=== PATIENT | female | born 1950 | race Caucasian/White ===

== ENCOUNTER → 2016-06-23 | Outpatient (CLI) | payer MEDICARE, OTHER ==
--- NOTE | 2016-06-24 09:13 | MRI ---
EXAM DESCRIPTION: Lumbar Spine w/o Contrast CLINICAL HISTORY: 66 years, Female, LOW BACK PAIN COMPARISON: None TECHNIQUE: Multiplanar multi sequence images of the lumbar spine were obtained without gadolinium contrast. FINDINGS: Vertebral body height and alignment are well maintained. There has been probable partial discectomy at L4-5. No bone marrow signal abnormalities are noted. The conus lies posterior to the L2 body, and the cauda equina is unremarkable. The paraspinal and visualized retroperitoneal soft tissues are unremarkable. At L1-2, there is no significant disc bulging or facet joint degeneration. At L2-3, there is mild bilateral facet joint degeneration and ligament flavum thickening. Minimal concentric disc bulging without neuroforaminal or significant central canal stenosis. At L3-4, there is bilateral facet joint degeneration and ligament flavum thickening also with only minimal concentric disc bulging. No neuroforaminal or significant central canal stenosis. At L4-5, scarring in the posterior soft tissues and possible small laminectomy defect are related to prior surgery. There is disc desiccation with concentric disc bulging and bilateral facet joint degeneration. Findings result in advanced left-sided neuroforaminal stenosis. Disc material approaches and possibly abuts the exiting left L4 nerve root. Mild right-sided neuroforaminal stenosis without definite right L4 nerve root abutment. Disc material indents the anterior thecal sac and approaches the L5 nerve roots in the lateral recesses bilaterally. Posterior annular tear may also be related prior surgery. At L5-S1, there is bilateral facet joint degeneration, worse on the right side, without significant disc bulging or stenosis. An osteophyte arising from the anterior aspect of the right L5-S1 facet approaches but does not definitely abut or displace the exiting right L5 nerve root. IMPRESSION: Postoperative changes at L4-5 with recurrent disc bulging and bilateral facet joint degeneration resulting in bilateral neuroforaminal stenosis, worse on the left side, including possible nerve root abutment as detailed above. Less advanced degenerative changes elsewhere in the lumbar spine without additional stenosis or definite root abutment. Electronically signed by: Emir Paulino MD 06/24/2016 9:12 AM CAREER [employer]ATION [employer]
== END | disposition home or self-care (01) ==
LOC: MRI 12:34
PROVIDERS: ATTEND Family Medicine
DX: M48.07 Spinal stenosis, lumbosacral region (principal); M54.5 Low back pain

== ENCOUNTER → 2016-07-29 | Outpatient (CLI) | payer MEDICARE, OTHER | END | disposition home or self-care (01) | LOC: GMAL 10:28 | PROVIDERS: ATTEND Family Medicine | DX: D51.3 Other dietary vitamin B12 deficiency anemia (principal); E55.9 Vitamin D deficiency, unspecified ==

== ENCOUNTER 2016-10-27 18:59 | Emergency (ER) | payer MEDICARE, OTHER ==
[2016-10-27] MEDS ORDERED: ASPIRIN TABLET 325 MG TAB PO ONE (19:23)
[2016-10-27] MEDS ORDERED: NITROGLYCERIN 0.4 MG 25 EA TAB SL ONE ×2 (19:23)
[2016-10-27] MEDS ORDERED: SODIUM CHLORIDE 0.9% (FLUSH) 10 ML SYG IV PRN (19:23)
[2016-10-27] MEDS ORDERED: ASPIRIN TABLET 325 MG TAB ONE (19:23)
[2016-10-27] MEDS ORDERED: ONDANSETRON INJ 4 MG/2 ML VIAL IV ONE (19:23)
[2016-10-27] MEDS ORDERED: MORPHINE SULFATE INJ 10 MG/ML VIAL IV ONE (19:29)
[2016-10-27] MEDS ORDERED: METOPROLOL TARTRATE 25 MG TAB PO ONE (19:29)
--- NOTE | 2016-10-27 20:01 | RAD ---
PROCEDURE: XR CHEST 1 VIEW HISTORY: Chest pain COMPARISON: 09/27/2014 TECHNIQUE: Single projection of the chest was done. FINDINGS: The lung estes are well inflated . There are no discrete airspace infiltrates, pneumothoraces or pleural effusions. The pulmonary vascularity is normal. The cardiomediastinal silhouette is stable. IMPRESSION: There is no acute pleural-parenchymal process seen in the imaged lung estes. Electronically signed by: Pj Murcia MD 10/27/2016 7:59 PM CDT Workstation: [id number]
[2016-10-27] MEDS ORDERED: HEPARIN SODIUM (PORCINE) 5,000 U/ML VIAL IV ONE (20:02)
[2016-10-27] MEDS ORDERED: ACETYLCYSTEIN 20 % 6,000 MG/30 ML VIAL PO ONE (20:18)
[2016-10-27] MEDS ORDERED: MAGNESIUM SULFATE PREMIX 2GM 2 GM in PREMIX BAG 1 BAG IVPB ONE (20:49)
[2016-10-27] MEDS ORDERED: MAGNESIUM SULFATE PREMIX 2GM 50 ML IVPB ONE (21:16)
--- NOTE | 2016-10-27 21:55 | CT ---
EXAM: CTA Chest CLINICAL INDICATION: 66-year-old female with A. fib, d-dimer and chest wall pain. COMPARISON: None. EXAMINATION: CT angiography of the pulmonary arteries was performed following intravenous administration of contrast. Coronal and bilateral oblique maximum intensity projections (MIPS) were created. This exam was performed according to our departmental dose optimization program which includes use of automated exposure control, adjustment of the mA and/or kV according to patient size and/or use of iterative reconstruction technique. FINDINGS: Chest: Evaluation through the lungs reveals no focal opacity, pleural effusion or pneumothorax. There is minimal dependent basilar atelectasis and scarring. The tracheobronchial airways are patent. No significant mediastinal or axillary lymphadenopathy by CT measurement criteria. Limited evaluation of the upper abdomen shows no acute intra-abdominal abnormalities. The osseous structures are within normal limits. CT angiography: Nondiagnostic CT angiography of the pulmonary arteries secondary to poor contrast opacification of the pulmonary arteries without large central intraluminal filling defect noted to suggest pulmonary arterial embolus. Pulmonary embolism beyond the segmental level cannot be evaluated secondary to suboptimal contrast opacification. IMPRESSION: 1. Nondiagnostic CT angiography of the pulmonary arteries secondary to poor contrast opacification of the pulmonary arteries without large central intraluminal filling defect noted to suggest pulmonary arterial embolus. Pulmonary embolism beyond the segmental level cannot be evaluated secondary to suboptimal contrast opacification. Repeat evaluation may be considered. 2. The lungs are clear without focal opacity, pleural effusion or pneumothorax. 3. No specific findings are noted to suggest etiology of the patient's chest pain and shortness of breath. Electronically signed by: Khadijah Helton MD 10/27/2016 9:54 PM CDT Workstation: [id number]
[2016-10-27] MEDS ORDERED: SODIUM CHLORIDE 0.9% 1000ML 500 ML IVS ONE (21:59)
[2016-10-27] MEDS ORDERED: CLOPIDOGREL 75 MG TAB PO ONE (22:30)
[2016-10-27] MEDS ORDERED: NITROGLYCERIN 0.4 MG 25 EA TAB SL PRN (22:47)
--- NOTE | 2016-10-27 22:58 | ED.PDOC ---
History of Present Illness - General Chief Complaint: Chest Pain/SD Stated Complaint: CP SOB Time Seen by Provider: 10/27/16 19:01 Source: patient, family Exam Limitations: no limitations - History of Present Illness Initial Comments: the patient is 66-year-old female presenting to the emergency room secondary to acute onset of chest pain and palpitations. The patient was feeling fine when she was walking around a store and then all of a sudden she developed severe chest pain and palpitations. She arrives here in atrial fibrillation with rapid ventricular rate and she is diaphoretic. Blood pressure is within normal limits and she is saturating at 100% on room air. Heart rate is between 120 and 130 bpm. the chest pain and atrial fibrillation both ceased within 5 minutes of receiving sublingual nitroglycerin. Timing/Duration: 1/2 hour Severity: severe Improving Factors: nothing, eating Associated Symptoms: chest pain, shortness of breath Allergies/Adverse Reactions: Allergies Amoxicillin [From Amoxil] Allergy (Verified 05/05/15 12:52) Ampicillin Allergy (Verified 05/05/15 12:52) Cefdinir [From Omnicef] Allergy (Verified 05/05/15 12:52) Ciprofloxacin [From Cipro] Allergy (Verified 05/05/15 12:52) Ezetimibe [From Vytorin] Allergy (Verified 05/05/15 12:52) Levofloxacin [From Levaquin] Allergy (Verified 05/05/15 12:52) Simvastatin [From Vytorin] Allergy (Verified 05/05/15 12:52) Sodium Benzoate [From Omnicef] Allergy (Verified 05/05/15 12:52) Statins Allergy (Verified 05/05/15 12:52) Sulfamethoxazole w/Trimethoprim [From Bactrim] Allergy (Verified 05/05/15 12:52) Home Medications: Ambulatory Orders Aspirin 325 mg PO PRN 04/01/13 Atenolol 50 mg PO DAILY 04/01/13 Colesevelam [Welchol] 1,875 mg PO BID 04/01/13 Cyanocobalamin [B-12] 1,000 mcg PO DAILY 04/01/13 Nitroglycerin 0.4 mg Tab [Nitrostat] 0.4 mg SL PRN 04/01/13 [place]-3 Fatty Acids [Lovaza] 1,000 mg PO QID 04/01/13 Pantoprazole Sodium 40 mg PO DAILY 04/01/13 Colchicine [Colcrys] 0.6 mg PO PRN PRN 05/08/14 Cyclobenzaprine HCl [Flexeril] 10 mg PO PRN 05/08/14 Febuxostat [Uloric] 40 mg PO JUNIE-OTH-DAY 05/08/14 Furosemide 20 mg PO PRN PRN 05/08/14 Olmesartan Medoxomil [Benicar] 40 mg PO DAILY 05/08/14 Amlodipine Besylate [Norvasc] 2.5 mg PO DAILY 05/05/15 Clopidogrel Bisulfate [Plavix] 75 mg PO QD 05/05/15 Pioglitazone HCl [Actos] 22.5 mg PO DAILY 05/05/15 Pravastatin Sodium [Pravachol] 20 mg PO BEDTIME 05/05/15 Review of Systems - Review of Systems Constitutional: States: malaise, weakness - generalized EENTM: States: no symptoms reported Respiratory: States: short of breath Cardiology: States: chest pain, palpitations Gastrointestinal/Abdominal: States: no symptoms reported Genitourinary: States: no symptoms reported Musculoskeletal: States: no symptoms reported Skin: States: no symptoms reported Neurological: States: anxiety Endocrine: States: no symptoms reported All other Systems: No Change from Baseline Past Medical History (General) - Patient Medical History Hx Seizures: No Hx Stroke: No Hx Dementia: No Hx Asthma: No Hx of COPD: No Hx Cardiac Disorders: Yes Hx Congestive Heart Failure: No Hx Pacemaker: No Hx Hypertension: Yes Hx Thyroid Disease: No Hx Diabetes: Yes Hx Gastroesophageal Reflux: Yes Hx Renal Disease: No Hx Cancer: No Hx of HIV: No Hx Hepatitis C: No Hx MRSA: No Surgical History: appendectomy, cholecystectomy, other - Vaccination History Hx Tetanus, Diphtheria Vaccination: - unknown Hx Influenza Vaccination: Yes Hx Pneumococcal Vaccination: Yes Immunizations Up to Date: Yes - Social History Hx Tobacco Use: No Hx Chewing Tobacco Use: No Hx Alcohol Use: No Hx Substance Use: No Hx Substance Use Treatment: No Hx Depression: No Feels Threatened In Home Enviroment: No Feels Threatened In a Relationship: No Hx Physical Abuse: No Hx Emotional Abuse: No Hx Suspected Abuse: No - Female History Patient : No Family Medical History - Family History Mother Living Status: Physical Exam - Physical Exam General Appearance: Alert, Obvious distress, Ill Appearing Eye Exam: bilateral normal Ears, Nose, Throat: hearing grossly normal, normal ENT inspection, normal pharynx Neck: non-tender, full range of motion, supple Respiratory: chest non-tender, lungs clear, normal breath sounds, no accessory muscle use, other - moderate increased respiratory drive possibly due to pain and anxiety. Oxygen saturations are reassuring. Cardiovascular/Chest: normal peripheral pulses, no edema, tachycardia, irregularly irregular Peripheral Pulses: radial,right: 2+, radial,left: 2+, dorsalis pedis,right: 2+, dorsalis pedis,left: 2+ Gastrointestinal/Abdominal: non tender, soft Rectal Exam: deferred Back Exam: normal inspection, no CVA tenderness, no vertebral tenderness Extremity: normal range of motion, non-tender, normal inspection, no pedal edema , normal capillary refill Neurologic: med dir II-XII nml as tested, alert, normal mood/affect, oriented x 3 Skin Exam: diaphoresis Comments: Laboratory Results - last 24 hr 10/27/16 10/27/16 10/27/16 19:40 19:40 19:40 WBC 4.6 L RBC 3.81 L Hgb 11.8 L Hct 36.5 MCV 95.8 MCH 30.9 MCHC 32.3 L RDW 15.0 H Plt Count 125 L MPV 7.0 L Absolute Neuts (auto) 1.80 Absolute Lymphs (auto) 2.30 Absolute Monos (auto) 0.40 Absolute Eos (auto) 0.10 Absolute Basos (auto) 0.00 Neutrophils % 38.6 L Lymphocytes % 50.9 H Monocytes % 9.0 Eosinophils % 1.1 Basophils % 0.4 PT 12.4 INR 1.100 PTT (SP) 32.3 D-Dimer, Quantitative 1098 H* Sodium 138 Potassium 4.2 Chloride 104 Carbon Dioxide 25 Anion Gap 13.2 BUN 17 Creatinine 1.40 H BUN/Creatinine Ratio 12.1 Random Glucose 189 H Serum Osmolality 282.3 Calcium 8.9 Magnesium 1.5 L Total Bilirubin 0.7 AST 69 H ALT 71 H Alkaline Phosphatase 46 Creatine Kinase 39 CK-MB (CK-2) 1.0 CK-MB (CK-2) % Not Reportable Troponin I 0.03 B-Natriuretic Peptide 162.0 H Serum Total Protein 6.4 Albumin 3.2 Globulin 3.2 Albumin/Globulin Ratio 1.0 L TSH 0.79 10/27/16 22:30 WBC RBC Hgb Hct MCV MCH MCHC RDW Plt Count MPV Absolute Neuts (auto) Absolute Lymphs (auto) Absolute Monos (auto) Absolute Eos (auto) Absolute Basos (auto) Neutrophils % Lymphocytes % Monocytes % Eosinophils % Basophils % PT INR PTT (SP) D-Dimer, Quantitative Sodium Potassium Chloride Carbon Dioxide Anion Gap BUN Creatinine BUN/Creatinine Ratio Random Glucose Serum Osmolality Calcium Magnesium Total Bilirubin AST ALT Alkaline Phosphatase Creatine Kinase 39 CK-MB (CK-2) CK-MB (CK-2) % Troponin I B-Natriuretic Peptide Serum Total Protein Albumin Globulin Albumin/Globulin Ratio TSH EKG initially shows atrial fibrillation with a rate of [address] segment changes consistent with acute ischemia. Repeat EKG after cardioversion shows the same but a sinus rhythm at a rate of 62 bpm. Chest x-ray shows no definitive infiltrates or pneumothorax. No obvious fluid overload. CT angiogram of the chest performed with PE protocol shows no definitive pulmonary emboli though the study was suboptimal. No evidence of large vessel pathology either. Progress - Progress Progress: 10/27/16 23:01 the patient is a 66-year-old female presenting to the emergency room secondary to acute onset chest pain with new onset atrial fibrillation with rapid ventricular rate. CT angiogram of the chest, though not an ideal study did not show any evidence of pulmonary emboli. D-dimer is significantly elevated. The patient cardioverted back to a normal sinus rhythm with a dose of nitroglycerin. She has been essentially chest pain-free since that time. Vital signs have been reassuring. Initial cardiac enzymes performed within 30 minutes of the event are negative. Repeat enzymes are pending at this time. The severity of the chest pain along with a new onset atrial fibrillation are worrisome for coronary pathology. The patient will be transferred to [facility] for further cardiac evaluation. The patient has received aspirin, nitroglycerin, an oral dose of metoprolol, Plavix, and a IV dose of heparin. Departure - Departure Clinical Impression: Acute angina, Atrial fibrillation with RVR Disposition: Transfer to Hospital Referrals: Eitan Strong III, MD [Primary Care Provider] - 1-2 Weeks Home Medications: Ambulatory Orders Aspirin 325 mg PO PRN 04/01/13 Atenolol 50 mg PO DAILY 04/01/13 Colesevelam [Welchol] 1,875 mg PO BID 04/01/13 Cyanocobalamin [B-12] 1,000 mcg PO DAILY 04/01/13 Nitroglycerin 0.4 mg Tab [Nitrostat] 0.4 mg SL PRN 04/01/13 [place]-3 Fatty Acids [Lovaza] 1,000 mg PO QID 04/01/13 Pantoprazole Sodium 40 mg PO DAILY 04/01/13 Colchicine [Colcrys] 0.6 mg PO PRN PRN 05/08/14 Cyclobenzaprine HCl [Flexeril] 10 mg PO PRN 05/08/14 Febuxostat [Uloric] 40 mg PO JUNIE-OTH-DAY 05/08/14 Furosemide 20 mg PO PRN PRN 05/08/14 Olmesartan Medoxomil [Benicar] 40 mg PO DAILY 05/08/14 Amlodipine Besylate [Norvasc] 2.5 mg PO DAILY 05/05/15 Clopidogrel Bisulfate [Plavix] 75 mg PO QD 05/05/15 Pioglitazone HCl [Actos] 22.5 mg PO DAILY 05/05/15 Pravastatin Sodium [Pravachol] 20 mg PO BEDTIME 05/05/15 Transfer to Outside Facility - Transfer Information Accepting Provider:: [email or web address] Accepting Facility: [facility] [place] Reason for Transfer: required specialist not available
[2016-10-27] MEDS ORDERED: HEPARIN PREMIX 25,000 UNITS in PREMIX BAG 1 BAG IVS SCH (23:15)
[2016-10-27 23:23] VITALS: BP 129/49; TEMP 98.9; O2SAT 99
[2016-10-27] MEDS ORDERED: HEPARIN PREMIX 500 ML ONE (23:52)
== END 2016-10-28 00:05 | disposition short-term general hospital (02) ==
LOC: ER 18:59
DX: I20.9 Angina pectoris, unspecified (principal); I48.91 Unspecified atrial fibrillation; I10 Essential (primary) hypertension; K21.9 Gastro-esophageal reflux disease without esophagitis; Z88.3 Allergy status to other anti-infective agents; Z88.8 Allergy status to other drugs, medicaments and biological substances; Z79.82 Long term (current) use of aspirin; Z79.02 Long term (current) use of antithrombotics/antiplatelets; Z79.899 Other long term (current) drug therapy
CPT/HCPCS: 36415; 71010; 71275; 80053; 82550; 82553; 83735; 83880; 84443; 84484; 85025; 85379; 85610; 85730; 93005; 94760; J1644; J2270; J2405; J3475; J7030

== ENCOUNTER → 2016-11-04 | Outpatient (CLI) | payer MEDICARE, OTHER | END | disposition home or self-care (01) | LOC: GMAL 10:54 | PROVIDERS: ATTEND Family Medicine | DX: E55.9 Vitamin D deficiency, unspecified (principal) ==

== ENCOUNTER → 2016-11-10 | Outpatient (CLI) | payer MEDICARE, OTHER | LOC: SL 20:30 | PROVIDERS: ATTEND Family Medicine | DX: G47.10 Hypersomnia, unspecified (principal); G47.9 Sleep disorder, unspecified; I10 Essential (primary) hypertension ==

== ENCOUNTER → 2017-02-16 | Outpatient (CLI) | payer MEDICARE, OTHER ==
--- NOTE | 2017-02-16 23:58 | MRI ---
EXAM DATE: 02/16/2017 9:51 AM CDT. PROCEDURE: MR BRAIN WITHOUT IV CONTRAST. INDICATION: TENSION-TYPE HEADACHE, UNSPECIFIED, NOT INTRACTABLE. COMPARISON: None. TECHNIQUE: Multiplanar multisequence images of the brain were acquired without the administration of intravenous contrast. FINDINGS: No acute infarct or intracranial hemorrhage. No mass, mass effect, or midline shift. No parenchymal signal abnormalities. Normal midline structures including the pituitary, corpus callosum, and cerebellar tonsils. The ventricles and sulci are normal in size and configuration for age. Internal carotid and vertebrobasilar flow voids are identified. Unremarkable orbits, mastoid air cells, and calvarium. Mild mucosal thickening scattered throughout the paranasal sinuses. IMPRESSION: Unremarkable MRI of the brain without contrast. Electronically signed by: Shaw Cadet MD 02/16/2017 11:57 PM CDT
== END | disposition home or self-care (01) ==
LOC: MRI 14:56
PROVIDERS: ATTEND Family Medicine
DX: G44.209 Tension-type headache, unspecified, not intractable (principal)

== ENCOUNTER 2017-06-26 00:37 | Emergency (ER) | payer MEDICARE, OTHER ==
[2017-06-26] MEDS ORDERED: KETOROLAC TROMETHAMINE INJ 30 MG/ML VIAL IM ONE (01:02)
[2017-06-26] MEDS ORDERED: predniSONE 20 MG TAB PO ONE (01:02)
[2017-06-26 01:03] VITALS: BP 167/81; TEMP 98.2; O2SAT 97
--- NOTE | 2017-06-26 01:05 | ED.PDOC ---
History of Present Illness - General Chief Complaint: Back Pain or Injury Stated Complaint: neck, shoulder, back pain Time Seen by Provider: 06/26/17 00:49 Source: patient Exam Limitations: no limitations - History of Present Illness Initial Comments: the patient is a 67-year-old female presenting to the emergency room secondary to neck pain to the right side of her neck extending down from the base versus gout to approximately T2 and laterally to the right to the level of the mid clavicle. She does have trapezius spasm. No torticollis. No spinous process tenderness. No neurological deficits. No trauma that she does have a history of intermittent muscle spasm surrounding the cervical spineonce or twice a year. She reports fair control with her diabetes. She did take a Flexeril before coming up. Night. Timing/Duration: 4-6 hours Severity: mild Improving Factors: nothing Worsening Factors: nothing Associated Symptoms: denies symptoms Allergies/Adverse Reactions: Allergies Amoxicillin [From Amoxil] Allergy (Verified 05/05/15 12:52) Ampicillin Allergy (Verified 05/05/15 12:52) Cefdinir [From Omnicef] Allergy (Verified 05/05/15 12:52) Ciprofloxacin [From Cipro] Allergy (Verified 05/05/15 12:52) Ezetimibe [From Vytorin] Allergy (Verified 05/05/15 12:52) Levofloxacin [From Levaquin] Allergy (Verified 05/05/15 12:52) Simvastatin [From Vytorin] Allergy (Verified 05/05/15 12:52) Sodium Benzoate [From Omnicef] Allergy (Verified 05/05/15 12:52) Statins Allergy (Verified 05/05/15 12:52) Sulfamethoxazole w/Trimethoprim [From Bactrim] Allergy (Verified 05/05/15 12:52) Home Medications: Ambulatory Orders Aspirin 325 mg PO PRN 04/01/13 Atenolol 50 mg PO DAILY 04/01/13 Colesevelam [Welchol] 1,875 mg PO BID 04/01/13 Cyanocobalamin [B-12] 1,000 mcg PO DAILY 04/01/13 Nitroglycerin 0.4 mg Tab [Nitrostat] 0.4 mg SL PRN 04/01/13 [place]-3 Fatty Acids [Lovaza] 1,000 mg PO QID 04/01/13 Pantoprazole Sodium 40 mg PO DAILY 04/01/13 Colchicine [Colcrys] 0.6 mg PO PRN PRN 05/08/14 Cyclobenzaprine HCl [Flexeril] 10 mg PO PRN 05/08/14 Febuxostat [Uloric] 40 mg PO JUNIE-OTH-DAY 05/08/14 Furosemide 20 mg PO PRN PRN 05/08/14 Olmesartan Medoxomil [Benicar] 40 mg PO DAILY 05/08/14 Amlodipine Besylate [Norvasc] 2.5 mg PO DAILY 05/05/15 Clopidogrel Bisulfate [Plavix] 75 mg PO QD 05/05/15 Pioglitazone HCl [Actos] 22.5 mg PO DAILY 05/05/15 Pravastatin Sodium [Pravachol] 20 mg PO BEDTIME 05/05/15 Tramadol HCl 50 mg PO Q8HR PRN #20 tab 06/26/17 predniSONE [Prednisone] 20 mg PO DAILY #3 tab 06/26/17 Review of Systems - Review of Systems Constitutional: States: no symptoms reported EENTM: States: no symptoms reported Respiratory: States: no symptoms reported Cardiology: States: no symptoms reported Gastrointestinal/Abdominal: States: no symptoms reported Genitourinary: States: no symptoms reported Musculoskeletal: States: see HPI Skin: States: no symptoms reported Neurological: States: no symptoms reported Endocrine: States: no symptoms reported All other Systems: No Change from Baseline Past Medical History (General) - Patient Medical History Hx Seizures: No Hx Stroke: No Hx Dementia: No Hx Asthma: No Hx of COPD: No Hx Cardiac Disorders: Yes Hx Congestive Heart Failure: No Hx Pacemaker: No Hx Hypertension: Yes Hx Thyroid Disease: No Hx Diabetes: Yes Hx Gastroesophageal Reflux: Yes Hx Renal Disease: No Hx Cancer: No Hx of HIV: No Hx Hepatitis C: No Hx MRSA: No - Vaccination History Hx Tetanus, Diphtheria Vaccination: - unknown Hx Influenza Vaccination: Yes Hx Pneumococcal Vaccination: Yes - Social History Hx Tobacco Use: No Hx Chewing Tobacco Use: No Hx Alcohol Use: No Hx Substance Use: No Hx Substance Use Treatment: No Hx Depression: No Hx Physical Abuse: No Hx Emotional Abuse: No Hx Suspected Abuse: No - Female History Patient : No Family Medical History - Family History Mother Living Status: Physical Exam - Physical Exam General Appearance: Alert, No apparent distress Eye Exam: bilateral normal Ears, Nose, Throat: hearing grossly normal, normal ENT inspection, normal pharynx Neck: non-tender - mild tenderness to palpation and muscle spasm over the right trapezius muscleproximally, full range of motion Respiratory: normal breath sounds, no respiratory distress, no accessory muscle use Cardiovascular/Chest: normal peripheral pulses, no edema Peripheral Pulses: dorsalis pedis,right: 2+, dorsalis pedis,left: 2+ Gastrointestinal/Abdominal: soft - obese Rectal Exam: deferred Back Exam: no CVA tenderness, no vertebral tenderness Extremity: non-tender, no calf tenderness, normal capillary refill Neurologic: auto body straightener II-XII nml as tested, alert, normal mood/affect, oriented x 3 Skin Exam: normal color Comments: Vital Signs - 24 hr 06/26/17 00:55 Temperature 98.2 F Pulse Rate [ 67 left] Respiratory 18 Rate Blood Pressure 167/81 [left] O2 Sat by Pulse 97 Oximetry Progress - Progress Progress: 06/26/17 01:05 the patient's 67-year-old female presenting with muscular spasm of the trapezius muscle on the right for the last 6 hours. The patient has already taken the Flexeril. She is being given a dose of prednisone and Toradol here. She will be written for prednisone as an outpatient for the next 3 days and she does need to monitor her blood sugars closely while taking this. She can additionally take 2 Aleve twice daily for the next 2 days only given her chronic renal insufficiency. She can take this with food to prevent stomach irritation. She can continue to use topical Biofreeze. She can continue to use a heat pad. A chiropractor may prove beneficial if symptoms persist more than 48 hours. she will additionally be written for some tramadol for as needed use for straight up pain control. She needs to be careful with the tramadol and the Flexeril as they can cause drowsiness. Departure - Departure Clinical Impression: Cervical paraspinal muscle spasm Disposition: Discharge to Home or Self Care Condition: Fair Departure Forms: ED Discharge - Pt. Copy, Patient Portal Self Enrollment Instructions: Chronic Neck Pain Diet: diabetic diet Activity: increase activity as tolerated Referrals: Eitan Strong III, MD [Primary Care Provider] - 1-2 Weeks Prescriptions: Tramadol HCl 50 mg PO Q8HR PRN #20 tab PRN Reason: Moderate To Severe Pain predniSONE [Prednisone] 20 mg PO DAILY #3 tab Home Medications: Ambulatory Orders Aspirin 325 mg PO PRN 04/01/13 Atenolol 50 mg PO DAILY 04/01/13 Colesevelam [Welchol] 1,875 mg PO BID 04/01/13 Cyanocobalamin [B-12] 1,000 mcg PO DAILY 04/01/13 Nitroglycerin 0.4 mg Tab [Nitrostat] 0.4 mg SL PRN 04/01/13 [place]-3 Fatty Acids [Lovaza] 1,000 mg PO QID 04/01/13 Pantoprazole Sodium 40 mg PO DAILY 04/01/13 Colchicine [Colcrys] 0.6 mg PO PRN PRN 05/08/14 Cyclobenzaprine HCl [Flexeril] 10 mg PO PRN 05/08/14 Febuxostat [Uloric] 40 mg PO JUNIE-OTH-DAY 05/08/14 Furosemide 20 mg PO PRN PRN 05/08/14 Olmesartan Medoxomil [Benicar] 40 mg PO DAILY 05/08/14 Amlodipine Besylate [Norvasc] 2.5 mg PO DAILY 05/05/15 Clopidogrel Bisulfate [Plavix] 75 mg PO QD 05/05/15 Pioglitazone HCl [Actos] 22.5 mg PO DAILY 05/05/15 Pravastatin Sodium [Pravachol] 20 mg PO BEDTIME 05/05/15 Tramadol HCl 50 mg PO Q8HR PRN #20 tab 06/26/17 predniSONE [Prednisone] 20 mg PO DAILY #3 tab 06/26/17 Additional Instructions: the patient's 67-year-old female presenting with muscular spasm of the trapezius muscle on the right for the last 6 hours. The patient has already taken the Flexeril. She is being given a dose of prednisone and Toradol here. She will be written for prednisone as an outpatient for the next 3 days and she does need to monitor her blood sugars closely while taking this. She can additionally take 2 Aleve twice daily for the next 2 days only given her chronic renal insufficiency. She can take this with food to prevent stomach irritation. She can continue to use topical Biofreeze. She can continue to use a heat pad. A chiropractor may prove beneficial if symptoms persist more than 48 hours. she will additionally be written for some tramadol for as needed use for straight up pain control. She needs to be careful with the tramadol and the Flexeril as they can cause drowsiness.
== END 2017-06-26 01:17 | disposition home or self-care (01) ==
LOC: ER 00:37
DX: M62.838 Other muscle spasm (principal); I10 Essential (primary) hypertension; E11.9 Type 2 diabetes mellitus without complications; K21.9 Gastro-esophageal reflux disease without esophagitis; Z79.82 Long term (current) use of aspirin; Z79.02 Long term (current) use of antithrombotics/antiplatelets
CPT/HCPCS: J1885; J7512

== ENCOUNTER → 2017-08-11 | Outpatient (CLI) | payer MEDICARE, OTHER | LOC: GMAL 14:20 | PROVIDERS: ATTEND Family Medicine | DX: I50.20 Unspecified systolic (congestive) heart failure (principal) ==

== ENCOUNTER → 2018-01-11 | Outpatient (CLI) | payer MEDICARE, OTHER | LOC: GMAL 14:28 | PROVIDERS: ATTEND Family Medicine | DX: M10.9 Gout, unspecified (principal) ==

== ENCOUNTER → 2018-08-29 | Outpatient (CLI) | payer MEDICARE, OTHER ==
--- NOTE | 2018-08-30 08:20 | US ---
EXAM DESCRIPTION: Abdomen,Complete: Ultrasound. CLINICAL HISTORY: ELEVATED LFT'S COMPARISON: None Available. TECHNIQUE: Transabdominal scannin-dimensional and Doppler modes. Technically difficult study due to patient body habitus. FINDINGS: Gallbladder: Surgically removed. No fluid in the gallbladder fossa. Right upper quadrant nontender with transducer pressure. Common bile duct: 5.5 mm is normal caliber. Liver: Long axis right lobe 13.8 cm. Normal echogenicity. Hepatopedal flow in the portal vein with normal caliber. Pancreas: Partially visualized with normal echogenicity. Pancreatic duct not seen.. Abdominal aorta: Normal caliber from the proximal segment of the distal bifurcation. IVC: visualized; normal caliber. Spleen normal echogenicity; long axis measurement is 9.5 cm. Right kidney: 10.4 cm long axis. Significantly thinned cortex 5 to 6 mm. Slightly increased echogenicity but less than the liver. No hydronephrosis, no echogenic stones and no perirenal fluid collection. Left kidney: Not well visualized. Long axis is approximately 9.5 cm. Unable to evaluate cortex echogenicity or thickness. No definite hydronephrosis. Cyst measures 2.4 cm maximum diameter. IMPRESSION: 1. Limited study due to patient body habitus. No tenderness with transducer pressure. 2. No significant steatosis in the liver with normal size. No focal lesions. Normal ducts and vascular flow. Smooth capsule with no ascites. Pancreas grossly normal. Spleen negative. 3. Limited visualization of the right kidney with markedly thin cortex but echogenicity less than that of the liver. No hydronephrosis. Poor visualization of the left kidney. 2.4 cm cyst. No gross hydronephrosis. 4. Gallbladder previously removed. Electronically signed by: Uriel Heard MD 08/30/2018 8:19 AM CDT
== END ==
LOC: LAB 07:55
PROVIDERS: ATTEND Family Medicine
DX: R94.5 Abnormal results of liver function studies (principal); R53.83 Other fatigue; E53.8 Deficiency of other specified B group vitamins; D64.9 Anemia, unspecified; Z90.49 Acquired absence of other specified parts of digestive tract

== ENCOUNTER → 2018-11-01 | Outpatient (CLI) | payer MEDICARE, OTHER ==
--- NOTE | 2018-11-01 15:09 | CT ---
EXAM DESCRIPTION: Chest w/o Contrast CLINICAL HISTORY: 68 years, Female, Pleural effusion mass COMPARISON: CT abdomen October 19, 2018 TECHNIQUE: Thin-section noncontrast axial CT images are obtained according to our protocol. Reconstructed MPR images are created and reviewed as well. FINDINGS: Lungs: Right lung is clear as is the left upper lobe. No worrisome pulmonary mass or nodule. Small left pleural effusion. Partial volume loss in the inferior lingula and left lower lobe anterior to the pleural effusion. Effusion is stable compared to the previous images through the lower chest obtained as part of CT abdomen and pelvis October 19, 2018 Mediastinum: Lymph nodes are normal in size. Normal vascular contours. Heart size is large with no pericardial effusion. Chest wall/axilla: No mass or adenopathy. Lower neck/supraclavicular: No mass or adenopathy. Thyroid gland appears normal. Upper abdomen: Unremarkable upper abdominal viscera. Coronal and sagittal reformatted images confirm the findings. IMPRESSION: Small to moderate left pleural effusion with partial volume loss in the inferior lingula and left lower lobe. This exam was performed according to our departmental dose-optimization program, which includes automated exposure control, adjustment of the mA and/or kV according to patient size and/or use of iterative reconstruction technique. Total DLP equals 680.62 mGycm. Electronically signed by: Humberto Mcclain MD 11/01/2018 3:07 PM CDT
== END ==
LOC: CT 11:41
PROVIDERS: ATTEND Internal Medicine Nephrology
DX: J90 Pleural effusion, not elsewhere classified (principal)

== ENCOUNTER 2018-11-08 05:49 | Day surgery (SDC) | payer MEDICARE, OTHER ==
[2018-11-08] MEDS ORDERED: LACTATED RINGERS 1,000 ML ONE (06:07)
[2018-11-08] MEDS ORDERED: PROPOFOL 200 MG/20 ML VIAL IV ONE (07:00)
[2018-11-08] MEDS ORDERED: LIDOCAINE 1% 10 ML VIAL INJ ONE (07:00)
[2018-11-08] MEDS ORDERED: LACTATED RINGERS 1,000 ML IVS ONE (09:20)
[2018-11-08 12:06] VITALS: O2SAT 97
[2018-11-08 13:02] VITALS: BP 150/57; TEMP 98.5
--- NOTE | 2018-11-09 07:57 | OP ---
DATE OF PROCEDURE: 11/08/18 PREOPERATIVE DIAGNOSIS: 1. Iron deficiency anemia. 2. Epigastric pain. POSTOPERATIVE DIAGNOSIS: 1. Two bleeding gastric polyps. 2. Hiatal hernia. 3. Multiple other non-bleeding gastric polyps. 4. Normal colonoscopy. PROCEDURE: 1. Esophagogastroduodenoscopy plus polypectomy plus biopsy plus control of bleeding. 2. Colonoscopy. SURGEON: Anthony Granger MD. COMPLICATIONS: None apparent. BLOOD LOSS: None. MEDICATIONS: Monitored anesthesia care. DESCRIPTION OF PROCEDURE: Informed consent was obtained prior to sedation. The preprocedure cardiopulmonary assessment was satisfactory. The patient was placed in the left lateral decubitus position and was sedated. The tip of the Olympus esophagogastroduodenoscope was inserted in the oropharynx and carefully advanced through the cricopharyngeus into the esophageal lumen. The esophagus was unremarkable. There was no evidence of esophageal varices, esophagitis or other potential bleeding source. The patient has a small hiatal hernia. The patient has numerous fundic gland polyps and other hyperplastic appearing polyps involving the body. There were two of the polyps in the body, however, that were bleeding. These were removed with a hot snare and recovered. One of the polyps had bleeding from its base after the polypectomy. I used the tip of the hot snare to cause cessation of the bleeding and I also placed one hemoclip across the bleeding spot to help maintain hemostasis. Both of the polyps were recovered. The rest of the stomach was unremarkable. The duodenum was unremarkable to the second portion and biopsies of the second portion were obtained to rule out celiac sprue as a cause of her iron deficiency anemia. The scope was then removed from the patient. The patient was rotated 180 degrees. A digital rectal exam was unremarkable. The tip of the Olympus colonoscope was inserted in the rectum and guided over to the cecum. The cecum was identified by locating the ileocecal valve and appendiceal orifice. There was liquid scattered throughout the colon and I suctioned as much of it away as possible in order to allow for good visualization. The mucosa of the cecum, ascending colon, hepatic flexure, transverse colon, splenic flexure, descending colon and sigmoid colon was closely examined. Direct and retroflexed views of the rectum were obtained. There were no abnormalities seen in the colon to account for her iron deficiency anemia. No polyps or cancer, etc. RECOMMENDATIONS: 1. Followup on the results of the biopsies and polypectomies. 2. We will be reviewing workup of her abnormal liver enzymes and proceed in further investigation if needed. #[id number] cc: Eitan Strong MD MTDD
== END 2018-11-08 12:48 | disposition home or self-care (01) ==
LOC: AMB 05:49
PROVIDERS: ATTEND Internal Medicine Gastroenterology
DX: D50.9 Iron deficiency anemia, unspecified (principal); K31.7 Polyp of stomach and duodenum; K44.9 Diaphragmatic hernia without obstruction or gangrene; I25.10 Atherosclerotic heart disease of native coronary artery without angina pectoris; K21.9 Gastro-esophageal reflux disease without esophagitis; I48.91 Unspecified atrial fibrillation; M10.9 Gout, unspecified; I12.9 Hypertensive chronic kidney disease with stage 1 through stage 4 chronic kidney disease, or unspecified chronic kidney disease; E11.22 Type 2 diabetes mellitus with diabetic chronic kidney disease; N18.9 Chronic kidney disease, unspecified; E53.8 Deficiency of other specified B group vitamins; Z88.1 Allergy status to other antibiotic agents; Z88.8 Allergy status to other drugs, medicaments and biological substances; Z79.82 Long term (current) use of aspirin; Z79.899 Other long term (current) drug therapy
CPT/HCPCS: 00813; 36416; 43239; 45378; 82948; J3490; J7120

== ENCOUNTER → 2018-11-21 | Outpatient (CLI) | payer MEDICARE, OTHER | LOC: LAB.O 08:17 | PROVIDERS: ATTEND Internal Medicine Gastroenterology | DX: R10.13 Epigastric pain (principal); D50.9 Iron deficiency anemia, unspecified; R19.7 Diarrhea, unspecified ==

== ENCOUNTER → 2018-12-12 | Outpatient (CLI) | payer MEDICARE, OTHER | LOC: GMAL 10:41 | PROVIDERS: ATTEND Family Medicine | DX: D50.9 Iron deficiency anemia, unspecified (principal) ==

== ENCOUNTER → 2019-09-20 | Outpatient (CLI) | payer MEDICARE, OTHER ==
--- NOTE | 2019-09-20 10:25 | MRI ---
MRI left foot/ankle without contrast INDICATION: Left foot pain medial ankle pain remote lateral fracture TECHNIQUE: Noncontrast MR imaging left foot/ankle FINDINGS: The Achilles is intact. Plantar aponeurosis is intact. No advanced midfoot arthrosis. No coalition. Lisfranc ligament complex is intact. Spring ligament is intact. Peroneal tendons and flexor tendons are intact. Posterior tibialis and anterior tibialis tendons are intact. Extensor tendons are intact. Mild edema in Kager's fat pad indicating paratendinitis mild. Small focus of subchondral edema/cystic change medial talar dome indicating overlying grade 4 chondral fissuring/small osteochondral lesion coronal series 701 image 42. This lesion measures approximately 3 mm in diameter. 2 small ossicles or enthesophytes deep deltoid near the tip of the medial malleolus. 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 Electronically signed by: Ashish Bautista MD 09/20/2019 10:24 AM CDT
== END ==
LOC: MRI 09:00
PROVIDERS: ATTEND Podiatrist
DX: M76.822 Posterior tibial tendinitis, left leg (principal); M94.8X7 Other specified disorders of cartilage, ankle and foot; M89.8X7 Other specified disorders of bone, ankle and foot

== ENCOUNTER → 2020-01-28 | Outpatient (CLI) | payer MEDICARE, OTHER | LOC: GMAL 16:45 | PROVIDERS: ATTEND Family Medicine | DX: I10 Essential (primary) hypertension (principal); E11.21 Type 2 diabetes mellitus with diabetic nephropathy ==

== ENCOUNTER → 2020-04-28 | Outpatient (CLI) | payer MEDICARE, OTHER ==
--- NOTE | 2020-04-29 19:53 | MAM ---
EXAM DESCRIPTION: 3D Screening BILATERAL : Digital Mammography. CLINICAL HISTORY: 70 years Female SCREEN . No complaints. No family history breast cancer. Menarche age 11. Childbirth age 17. Menopause at age 58. No HRT.. Lifetime risk of developing breast cancer (Tyrer-Cuzick model)(%): 3.3. COMPARISON: Bilateral screening digital breast 2-D imaging March 2016. TECHNIQUE: Bilateral CC and MLO projection full-field images, digital tomosynthesis mammographic technique. Bilateral digital 2-D full-field MLO images. CAD available for 2-D images. Patient had difficulty keeping chin elevated for right MLO. FINDINGS: The breast parenchymal density pattern is: Scattered areas of fibroglandular density. Vascular calcifications. Solitary microcalcifications. Inverted right nipple. No skin thickening or nipple retraction No new focal, stellate mass or density, focal asymmetry , and no suspicious microcalcifications bilaterally. Stable mammograms compared to prior study. Taking into account, differences in mammographic technique. IMPRESSION: Benign exam. BIRAD CATEGORY: 2 BENIGN FINDINGS. RECOMMENDATIONS: FOLLOW UP: Routine digital bilateral mammographic screening, one year interval from April 2020. Written communication explaining the IMPRESSION and follow-up, will be mailed to the patient and referring health care provider. According to the [employer], yearly mammograms are recommended starting at age 40 and continuing as long as a woman is in good health. Any breast change noted on a breast self-exam should be reported promptly to the patient's healthcare provider. Breast MRI is recommended for women with an approximately 20-25% or greater lifetime risk of breast cancer, including women with a strong family history of breast or ovarian cancer and women who have been treated for Hodgkin's disease. A negative mammographic report should not delay tissue diagnosis in patients with significant clinical history or physical findings. Extremely dense breast tissue limits the sensitivity of digital mammography. Electronically signed by: Uriel Heard MD 04/29/2020 7:52 PM [employer] TECHNICIAN
== END ==
LOC: MAMMO 09:50
PROVIDERS: ATTEND Family Medicine
DX: Z12.31 Encounter for screening mammogram for malignant neoplasm of breast (principal)